=== PATIENT | female | born 1965 | race African-American/Black ===

== ENCOUNTER 2016-09-01 11:28 | Emergency (ER) | payer OTHER ==
[~2016-09-01 11:28] MED LIST: Nitroglycerin 0.4 MG TAB 1 EACH ONE
[2016-09-01] MEDS ORDERED: Metoprolol Tartrate 5 MG/5 ML VIAL ONE (12:06)
[2016-09-01 12:43] LABS: Eosinophils 2 % (0-10); Hemoglobin 11.1 g/dL (12.0-16.0); Lymphocytes 28 % (21-51); MDiff Complete? YES; Mean Corpuscular HGB CONC 31.4 g/dL (32.0-36.0); Mean Corpuscular Hemoglobin 29.9 pg (27.0-31.0); Mean Corpuscular Volume 95.4 fl (81.0-99.0); Mean Platelet Volume 6.2 fL (7.4-10.4); Monocytes 6 % (0-10); Neutrophil 64 % (42-75); PLT Morphology Comment Appears Adequate; Platelet Count 343 thou/uL (130-400); Red Blood Cell (RBC) Count 3.71 mill/uL (4.20-5.40); White Blood Cell (WBC) Count 9.5 thou/uL (4.8-10.8)
[2016-09-01 12:47] LABS: ALT (SGPT) 28 U/L (8-55); AST (SGOT) 55 U/L (5-34); Albumin 2.9 g/dL (3.5-5.0); Alkaline Phosphatase 125 U/L (40-150); Anion Gap 13 mmol/L (10-20); BUN (Urea Nitrogen) 23 mg/dL (7.0-18.7); Bilirubin, Total 0.3 mg/dL (0.2-1.2); CK (CPK) 101 U/L (29-168); Calc. Creatinine Clearance 0 mL/min (70-130); Calcium 8.2 mg/dL (7.8-10.44); Carbon Dioxide 23 mmol/L (22-29); Chloride 111 mmol/L (98-107); Estimated GFR-MDRD 31; Globulin 3.4 g/dL (2.4-3.5); Glucose 132 mg/dL (70-105); Potassium 4.1 mmol/L (3.5-5.1); Protein, Total 6.3 g/dL (6.0-8.3); Sodium 143 mmol/L (136-145)
[2016-09-01 12:49] LABS: CKMB 3.2 ng/mL (0-6.6)
--- NOTE | 2016-09-01 12:52 | RAD ---
RADIOGRAPH CHEST 1 VIEW: Date: 09/01/2016 Time: 12:16 p.m. HISTORY: A 51-year-old female with chest pain. COMPARISON: 07/12/2016 FINDINGS: The heart size has increased, and there is now moderate cardiomegaly. There is a new finding of pul monary vascular engorgement. There is a new finding of increased interstitial markings in the lower lung zones, perhaps representing mild, early pulmonary interstitial edema. The lateral costophreni c angles remain sharp. No pneumothorax. IMPRESSION: Evidence for mild congestive heart failure. JN [] POS: RENU
[2016-09-01] MEDS ORDERED: Furosemide 40 MG/4 ML VIAL ONE (13:56)
== END 2016-09-01 14:22 | disposition short-term general hospital (02) ==
LOC: MADERS 11:28
DX: I11.0 Hypertensive heart disease with heart failure (principal); I50.9 Heart failure, unspecified; N28.9 Disorder of kidney and ureter, unspecified; F14.10 Cocaine abuse, uncomplicated; I25.10 Atherosclerotic heart disease of native coronary artery without angina pectoris; E78.5 Hyperlipidemia, unspecified; E11.9 Type 2 diabetes mellitus without complications; F41.9 Anxiety disorder, unspecified; F31.9 Bipolar disorder, unspecified; F20.9 Schizophrenia, unspecified; F17.210 Nicotine dependence, cigarettes, uncomplicated; Z86.73 Personal history of transient ischemic attack (TIA), and cerebral infarction without residual deficits
CPT/HCPCS: 36415; 71010; 80053; 82553; 83880; 84484; 85025; 93005; 94760; 96374; 96375; J1940